=== PATIENT | male | born 1975 | race African-American/Black ===

== ENCOUNTER 2021-08-08 22:22 | Emergency (ER) | payer BC ==
[~2021-08-08] VITALS: Ht 172.7 cm; Wt 82.0 kg
[2021-08-08 23:34] LABS: EOSINOPHILS % 3.1 % (0.0-5.0); HEMATOCRIT. 42.2 % (42.0-52.0); HEMOGLOBIN. 14.1 g/dL (14.0-18.0); LYMPHOCYTES % 36.9 % (20.0-50.0); MEAN CORPUSCULAR HEMOGLOBIN 28.9 pg (28.0-32.0); MEAN CORPUSCULAR VOLUME 86.2 fL (80.0-94.0); MEAN PLATELET VOLUME 9.2 fl (7.4-10.4); MONOCYTES % 6.7 % (2.0-8.0); NEUTROPHILS % 52.3 % (40.0-76.0); PLATELET 204 x1000/uL (130-400); RED CELL DISTRIBUTION WIDTH 13.9 % (11.6-14.6)
[2021-08-08 23:42] LABS: CHLORIDE 108 mEq/L (98-107)
[2021-08-09] MEDS ORDERED: AMLO5TAB88 MT (00:57)
[2021-08-09] MEDS ORDERED: AMLODIPINE 5MG TABLET PO ONE (01:00)
[2021-08-09 01:16] VITALS: BP 150/98
[2021-08-09 05:43] LABS: CLARITY URINE CLEAR (CLEAR); COLOR URINE YELLOW (YELLOW); KETONES URINE NEGATIVE (NEGATIVE); LEUKOCYTE ESTERASE URINE 2+ (NEGATIVE); NITRITE URINE NEGATIVE (NEGATIVE); OCCULT BLOOD URINE NEGATIVE (NEGATIVE); PROTEIN URINE NEGATIVE (NEGATIVE); SPECIFIC GRAVITY URINE 1.018 (1.005-1.030); UROBILINOGEN URINE 0.2 E.U./dL (0.2-1.0)
== END 2021-08-09 01:16 | disposition home or self-care (01) ==
LOC: ER 22:22
DX: I10 Essential (primary) hypertension (principal)
CPT/HCPCS: 36415; 80048; 81003; 85025; 93005; 99284

== ENCOUNTER 2021-08-09 07:43 | Emergency (ER) | payer BC ==
[~2021-08-09] VITALS: Ht 172.7 cm; Wt 80.0 kg
[~2021-08-09 07:43] MED LIST: AMLO5TAB88 MT
[2021-08-09] MEDS ORDERED: AMLODIPINE 10MG TABLET PO ONE (08:30)
[2021-08-09] MEDS ORDERED: ACETAMINOPHEN 325MG TABLET PO ONE (08:45)
[2021-08-09 09:16] VITALS: BP 153/89
== END 2021-08-09 09:17 | disposition home or self-care (01) ==
LOC: ER 07:43
DX: I10 Essential (primary) hypertension (principal); R51.9 Headache, unspecified
CPT/HCPCS: 99283